=== PATIENT | female | born 1945 | race Caucasian/White ===

== ENCOUNTER 2025-09-03 08:36 | Day surgery (SDC) | payer OTHER, SELFPAY ==
--- NOTE | ~2025-09-03 | FL_ITS ---
EXAMINATION: FL GUIDANCE ONLY HISTORY: Procedural guidance COMPARISON: None available. TECHNIQUE: Fluoroscopy time: 11 seconds. Cumulative Dose: 1.70 mGy. DAP: 74.96 uGym2 Images: 1. FINDINGS: A single fluoroscopic spot film of the cervical spine demonstrates a needle and contrast material in place. FL/FL guidance in OR IMPRESSION: Fluoroscopy during procedure. Please see procedure report for additional information. Electronically signed by: Júnior Correa MD 09/03/2025 11:34 AM JANIS
[2025-09-03 09:33] VITALS: BMI 26.5
--- NOTE | 2025-09-03 09:34 | MHC.SHP ---
Pre-Procedural Eval Section A - 24 Hr Update-Section A only Date of Service: 09/03/25 The patient is an INPATIENT: No Changes since office visit: No Cold of Flu in the past 2 weeks, No New Medical Problems, No Changes in Medication and No Patient answered all questions Section B - Complete if H&P > 30 days Chief Complaint: Radiculopathy, cervical region Details of Present Illness: Chronic lower back pain, lumbar radiculitis Relevant Family History (Specify if Yes): No Relevant Social History: None Present Medications: see Short Stay Collaborative assessment Medical History: No relevant PMH History of Previous Operations: No relevant previous surgery Allergies: Allergies Allergy/AdvReac Type Severity Reaction Status Date / Time metformin Allergy Unknown Verified 08/30/25 16:22 Review of Systems Sugical H&P ROS: Negative: Constitution, Cardiovascular, Respiratory, Neurological, Psychiatric, Hem-Onc, Allergic/Immunologic, Gastrointestinal, Genitourinary, Musculoskeletal, Integumentary, Endocrine and Eyes/Ears/Nose/Throat Exam Surgical H&P Exam: Normal: HEENT, Normal: Heart, Normal: Lungs, Normal: Extremities, Normal: Abdomen, Normal: Skin and Normal: Neurological Plan Diagnosis/Plan: Unchanged I have reviewed the history and physical and performed a pertinent physical examination on my patient. No changes have occurred unless specified. Time Spent With Patient Time: Total time managing care of this patient today ____ minutes.
--- NOTE | 2025-09-03 09:35 | W.PM.OPN ---
Operative Note Operative Note Date of Service: 09/03/25 Narrative: Procedure performed: C7-T1 Preop diagnosis: Cervical radiculitis Postop diagnosis: The same Anesthesia: Local After informed consent was obtained patient was brought into the procedure room and placed in the prone position procedure table. Skin over cervicothoracic junction was prepped and draped in the usual sterile manner. C7-T1 interlaminar space was visualized utilizing fluoroscopy. After skin was anesthetized with lidocaine, 3.5 in 20 gauge Tuohy needle was introduced percutaneously and advanced superior edge of the T1 lamina. Needle was then slowly advanced into the epidural space utilizing loss of resistance technique. Once in place, needle placement was verified utilizing 3 cc of Omnipaque contrast solution. Good epidural spread was visualized. After negative aspiration for blood or cerebrospinal fluid, total volume of 5 cc containing 40 mg of triamcinolone and normal saline solution was injected. Radiation exposure was documented.
[2025-09-03 09:43] VITALS: BP 137/71; PULSE 78; RESP 16; TEMP 36.6; O2SAT 94
--- NOTE | 2025-09-03 09:44 | PC.NURSE ---
patient took Trulicity this morning, unaware need to hold medication for 7days. Dr. Mckenna anesthesiologist and Dr. Gibson aware. patient agreeable to procdure with local anesthesia.
[2025-09-03 10:26] VITALS: BP 144/67; PULSE 70; RESP 18; TEMP 36.6; O2SAT 98
== END 2025-09-03 10:45 | disposition home or self-care (01) ==
PROVIDERS: PCP Internal Medicine; Visit Provider Physical Medicine & Rehabilitation
PROC: (CPT 62321; principal; 2025-09-03 12:30)
DX: M54.12 Radiculopathy, cervical region (principal); G89.4 Chronic pain syndrome; M54.2 Cervicalgia; M48.02 Spinal stenosis, cervical region; M19.90 Unspecified osteoarthritis, unspecified site; J43.9 Emphysema, unspecified; I10 Essential (primary) hypertension; E11.9 Type 2 diabetes mellitus without complications; Z79.51 Long term (current) use of inhaled steroids; Z79.52 Long term (current) use of systemic steroids; Z79.84 Long term (current) use of oral hypoglycemic drugs; Z79.85 Long-term (current) use of injectable non-insulin antidiabetic drugs; Z79.899 Other long term (current) drug therapy; Z88.8 Allergy status to other drugs, medicaments and biological substances; Z98.890 Other specified postprocedural states
CPT/HCPCS: 62321; J2003; J3301; Q9967

== ENCOUNTER → 2025-09-03 08:36 | Outpatient (BNV) | payer OTHER, SELFPAY | PROVIDERS: PCP Internal Medicine; Visit Provider Physical Medicine & Rehabilitation | DX: M54.12 Radiculopathy, cervical region (principal) | CPT/HCPCS: 62321 ==

== ENCOUNTER 2025-09-27 09:11 | Outpatient (AMB) | payer OTHER, SELFPAY ==
--- OUTSIDE RECORDS SUMMARY | 2024-06-19 06:30 | XMS_ITS ---
Author Organization [facility] Address [address] [place] [address] Care Team Providers Care Supervisor Speech Name Role Phone Beto KELLEY, Aleena Primary Care Provider Unavailab Tom Hester Unavailable [phone] Encounters Encounter Location Date Provider Diagnosis [facility] [address] [place] [address] 06/19/2024 Tom Villa Plan Of Treatment Next Appt Details Provider Name:Vanessa lopez, 11/23/2025 09:30:00 AM, [address], [place], [address], Progress Notes * Nicky GOMESDOB: [birth year] (79 yo F)Acc No.[id number]:06/19/2024 Progress Note Patient: Nicky OLIVIER Provider: Jah Villa DPM :1945 A ge:78 Y S ex:Female Date:06/19/2024 Address:[address], [place], [place] Pcp:Aleena Pérez MD Subjective: * Chief Complaints: * * Medical History: Objective: * Vitals: Assessment: Plan: * Treatment: * Images: * The named appointment provid er may or may not be the originator of this progress note, and it is not deemed complete until electronically signed by the appointment provider. Sign off status: Pending * Provider: Jah Villa DPM Date: 0 06/19/2024 Generated for Alphonso parson/Hung/Melissaitting on: 1 11/28/2024 10:21 AM EST
[2025-09-27 09:21] VITALS: BMI 26.5
--- NOTE | 2025-09-27 09:21 | A.PHYSOV ---
Vital Signs 09/27/25 09:21 Height 5 ft 2 in Weight 145 lb BMI 26.5 Intake Visit Reasons: F/U after injection 09/03/2025 Intake Note: Patient is a 79 year old female in office for a follow up after C7-T1 interlaminar epidural injection 09/03/25. Patient also her for her 3 month medication management visit. Patient feels injection didn't work this time. Radiology Scheduler Required: No Allergies metformin Allergy (Verified 09/27/25 09:21) Unknown HPI Comments Details: History of Present Illness The patient is an 79 year old female presenting with chronic lower back pain, lumbar radiculitis, and cervical radiculitis. She is contracted for oxycodone three times a day and also uses it as needed for severe pain, and she has been rational with her medication use. She has a history of multiple lumbar epidural injections that provided no significant benefit. A C7-T1 epidural injection on April 16, 2025, provided excellent results with pain relief for almost three months. Her cervical spine MRI revealed moderate central canal stenosis at C4-C5 and moderate to severe canal stenosis at C5-C6 with varying degrees of neural foraminal stenosis. Due to returning pain, she underwent a repeat C7-T1 epidural injection on September 03, 2025, but this procedure did not provide any pain relief. The patient reports experiencing stiffness and pain upon waking in the morning, which improves as she starts to move. Pain Description - Location: Pain is located in the lower back and neck. - Quality: The pain is chronic. - Associated Symptoms: Reports morning stiffness and pain that improves with movement. - Other: During the recent unsuccessful injection, she experienced a sensation like electricity going in my kidney. Results - Imaging: A cervical spine MRI prior to August 02, 2025 showed moderate central canal stenosis at C4-C5 and moderate to severe canal stenosis at C5-C6 with various degrees of neural foraminal stenosis. [facility] Medical History (Updated 09/27/25 @ 12:33 by Raffi Gibson DO) parts counterman use of opioid Chronic pain syndrome Lumbar radiculitis HTN (hypertension) Emphysema, unspecified Diabetes Arthritis Asthma Cervical radiculitis Surgical History History of knee surgery History of back surgery History of epidural steroid injection into lumbar spine Social History Are you a primary child care centre manager to a significant other at home: No Do you presently have visiting nurse or other home services: No Alcohol intake: current Alcohol intake frequency: holidays/special occasions only Patient Tobacco Use Status: Never used Tobacco Second Hand Smoke Exposure: No Current occupational status: retired Review of Systems Narrative Review of Systems - Musculoskeletal: Reports chronic pain in the lower back and neck, along with morning stiffness. - Neurological: Reports symptoms consistent with lumbar and cervical radiculitis. Physical Exam Exam Exam: Physical Exam Patient appears to be in no acute distress, appropriately conversant oriented. She ambulates without antalgia. Lumbar range of motion was restricted in extension. Dural tension signs were negative. Cervical range of motion was restricted in all planes. Spurling maneuver was negative. Lhermitte's sign was negative. Neurological examination was nonfocal. She demonstrated no upper motor neuron signs. Vital Signs: BMI result Body Mass Index 26.5 Assessment & Plan Assessment & Plan (1) Cervical radiculitis: Code(s): M54.12 - Radiculopathy, cervical region Category: Medical (2) Lumbar radiculitis: Code(s): M54.16 - Radiculopathy, lumbar region Category: Medical (3) Chronic pain syndrome: Code(s): G89.4 - Chronic pain syndrome Category: Medical (4) parts counterman use of opioid: Code(s): Z79.891 - parts counterman (current) use of opiate analgesic Category: Medical Plan Pain Management - Analgesia: The patient is taking oxycodone 3 times a day and as needed for severe pain. - Analgesia: A C7-T1 epidural on April 16, 2025, provided pain relief for almost three months, but a repeat injection on September 03, 2025, offered no benefit. - Affect: The patient expresses some frustration about having to live with pain for the rest of her life. - Activities of Daily Living: Her pain and stiffness are worse in the morning but improve with movement. - Activities of Daily Living: She dances every Wednesday and intends to start exercising at the [facility]. - Aberrant Drug Related Behaviors: The patient has been rational with her medication use and will need a refill in a few days. Plan Patient was informed and verbally consented to the use of an ambient scribe for clinic note documentation during this visit. 1. Chronic Pain The patient's chronic pain is attributed to cervical and lumbar radiculitis and cervical spinal stenosis. The recent C7-T1 epidural injection on September 03, 2025, failed to provide relief, unlike a previous injection that was effective for nearly three months. Given the lack of benefit, no further injections will be performed at this time. Management will continue with her current pain medication regimen of oxycodone, and a refill will be sent to her pharmacy. The patient was encouraged to pursue exercise at the [facility] and use hot showers for morning stiffness. Discussion Notes I discussed with the patient that her most recent C7-T1 epidural injection on September 03, 2025, unfortunately, did not provide any pain relief. We acknowledged this was different from her prior injection, which had worked for almost three months. I informed her that because the procedure was not effective, we will not attempt it again, and at this time there are no other injection options to offer. I advised that we will continue her current pain medication regimen, and I agreed to send a refill for her oxycodone to the pharmacy. I encouraged her to stay active with activities like dancing and to start exercising at the [facility], as movement and hot showers can help with her morning stiffness. Patient Instructions - Continue to take your oxycodone for pain as prescribed. - A prescription refill for your pain medication will be sent to your pharmacy in a few days. - We will not be doing any more injections at this time since the last one did not help your pain. - Try to stay active. Consider exercising at the [facility], as movement can help with pain and stiffness. - Taking a hot shower in the morning may help relieve morning stiffness. Medications: Changed From oxycodone-acetaminophen 5-325 mg (Percocet) 1 tab PO Q8H 28 days PRN 84 tabs 0RF Pain G89.4 - Chronic pain syndrome, M54.12 - Radiculopathy, cervical region, M54.16 - Radiculopathy, lumbar region To oxycodone-acetaminophen 5-325 mg (Percocet) Partial fill upon request 1 tab PO Q8H PRN 84 tabs 0RF Pain 28 days G89.4 - Chronic pain syndrome, M54.12 - Radiculopathy, cervical region, M54.16 - Radiculopathy, lumbar region Coding Level of Care Code Est Pt Level 3 (15560) Add On Problem Visit Only Diagnoses Cervical radiculitis M54.12 Lumbar radiculitis M54.16 Chronic pain syndrome G89.4 intermediate use of opioid Z79.891
--- OUTSIDE RECORDS SUMMARY | 2025-09-27 10:21 | XMS_ITS | Patient Health Record ---
Author Organization [facility] Crista catina Chou Address [address] [place] [address] Care Team Providers Care Research Computing Specialist Name Role Phone Beto KELLEY, [facility] Primary Care Provider Unavailab Tom Hester Unavailable [phone] Vanessa Bey Unavailable [phone] Allergies Allergen (clinical drug ingredient) Drug/Non Drug Allergy documented on EMR Reaction Allergy Type Onset Date Status metformin Metformin upset stomach Drug Allergy Act reshma Results Component Value Reference Range Notes HEMOGLOBIN A1C (GLYCOHEMOGLO BIN) Reviewed date:03/22/2025 09:14:31 AM Interpretation: Performing Lab: Notes/Report: HEMOGLOBIN A1C % (HH) 8.3 HEMOGLOBIN A1C (GLYCOHEMOGLO BIN) Reviewed date:08/17/2025 10:26:57 AM Interpretation: Performing Lab: Notes/Report: HEMOGLOBIN A1C % (HH) 8.3 Reason For Referral No Information Medications Medication SIG (Take, Route, Frequency, Duration) Notes Start Date End Date Status Albuterol Sulfate Ac tive Vitamin D 10 MCG/ML as directed Orally Active Dulaglutide 0.75 MG/0.5ML as directed Subcutaneous Active Ammonium Lactate 12 % 1 application to a ffected area Externally to feet Twice a day; Duration: 30 days Active DULoxetine HCl 20 MG 1 capsule Orally Tw ice a day; Duration: 30 day(s) Active Extra Depth Orthopedic Shoes (1 Pair) with Customized Heat Molded Multidensity Innersoles (3 Pair) as directed Dx: NIDDM/Polyneuropathy (E11.42), Hammertoe Foot Deformity (M20.41,M20.42), Preulcerative Skin Lesion(s) (L85.1 Active Famotidine 20 MG 1 tablet at bedtime as needed Orally Once a day; Duration: 30 day(s) Active Fish Oil Active Flovent Diskus 100 MCG/BLIST 1 puff Inhalation Twice a day Active Gabapentin 100 MG 1 capsule Orally Onc e a day; Duration: 30 day(s) Active glipiZIDE 10 MG 1 tablet 30 minutes before breakfast Orally Once a day; Duration: 30 day(s) Active Glucose Management - as directed Orally Active Atorvastatin Calcium Active traZODone HCl 50 MG 1 tablet at bedtime as needed Orally Once a day; Duration: 30 day(s) Active Accu-chek active care kit 1 tab Oral; Du ration: 14 days Active Valsartan 320 MG 1 tablet Orally Once a day; Duration: 30 day(s) Active Immunizations Vaccine Route Administration Date Status Comme nts Influenza Unknown 05/14/2020 Administered Influenza Unknown 10/22/2024 Administered COVID-19 Pfizer BioNTech Vaccine Unknown 2020 Adm inistered #2 12/17/20 Social History Tobacco Use: Social History Observation Description Date Details (start date - stop date) Never Smoker NA - NA Tobacco use other than smoking: Question Answer Notes Are you an other tobacco user? No Tobacco Control (Standard) Question Answer Notes Tobacco use: Nonsmoker Additional Findings: Tobacco non-user Current no nsmoker AUDIT-C (Standard) Question Answer Notes Did you have a drink containing alcohol in the p ast year? No Points 0 Interpretation Negative Problems Problem Type SNOMED Code ICD Code Onset Dates Problem Status W/U Status Risk Notes Problem Acquired hammer toe of right foot (3730082881696348 ) Other hammer toe(s) (acquired), right foot (M20.41) Active confirmed Response to treatment, Improvemen t Problem Acquired hammer toe of left foot (0230101675435037 ) Other hammer toe(s) (acquired), left foot (M20.42) Active confirmed Response to treatment, Improvemen t Problem Polyneuropathy due to type 2 diabetes mellitus (239698784) Type 2 diabetes mellitus with diabetic polyneuropathy (E11.42) Active confirmed Vital Signs Heart Rate 76 /min 03/19/2025 Blood pressure diastolic 65 mm Hg 08/17/2025 Height 5 ft 2 in in 08/17/2025 Blood pressure systolic 128 mm Hg 08/17/2025 Weight 143 lbs 08/17/2025 BMI 26.15 kg/m2 08/17/2025 Procedures Procedure Date Ordered Date Performed Result Body Sit e 44987-BJBBDRA NAIL, 6 OR MORE 03/19/2025 N/A 73283-LAGL SKIN LESIONS, OVER 4 03/19/2025 N/A 25823-KZFVAEA NAIL, 6 OR MORE 08/17/2025 N/A 54060-PDIR SKIN LESIONS, OVER 4 08/17/2025 N/A Encounters Encounter Location Date Provider Diagnosis [facility] [address] 03/19/2025 Tom Jeffersonunier Type 2 diabetes mellitus with diabetic polyneuropathy E11.42 ; Tinea unguium B35.1 ; Other hammer toe(s) (acquired), right foot M20.41 and Other hammer toe(s) (acquired), left foot M20.[address] [address] 08/17/2025 Vanessa Bey Type 2 diabetes mellitus with diabetic polyneuropathy E11.42 and Tinea unguium B35.1 Assessments Encounter Date Diagnosis (ICD Code) Assessment Notes Treatment Notes Treatment Clinical Notes Section Notes 03/19/2025 Tinea unguium (ICD-10 - B35.1) 03/19/2025 Type 2 diabetes mellitus with diabetic polyneuropathy (ICD-10 - E11.42) 08/17/2025 Tinea unguium (ICD-10 - B35.1) 08/17/2025 Type 2 diabetes mellitus with diabetic polyneuropathy (ICD-10 - E11.42) 03/19/2025 Other hammer toe(s) (acquired), right foot (ICD-10 - M20.41) Patient Educated with: DIABETIC FOOT CARE INSTRUCTIONS. pdf (DIABETIC FOOT CARE INSTRUCTIONS. pdf) 03/19/2025 Other hammer toe(s) (acquired), left foot (ICD-10 - M20.42) Plan Of Treatment Pending Test Test Name Order Date 52079-OLYKLDN NAIL, 6 OR MORE 09/11/2020 42966-NPOUNWK NAIL, 6 OR MORE 12/19/2020 90237-KKPYUDM NAIL, 6 OR MORE 03/20/2021 46109-DMQWUDA NAIL, 6 OR MORE 06/19/2021 57483-YTZSKII NAIL, 6 OR MORE 09/15/2021 41516-DZQDLZA NAIL, 6 OR MORE 12/15/2021 99761-RIHTUMU NAIL, 6 OR MORE 03/16/2022 68918-AQKVDQL NAIL, 6 OR MORE 06/17/2022 39177-KJHKQNI NAIL, 6 OR MORE 09/23/2022 48691-GVSABXO NAIL, 6 OR MORE 12/30/2022 27954-TDQDPYV NAIL, 6 OR MORE 04/01/2023 14051-GAAPUJH NAIL, 6 OR MORE 08/25/2023 09795-IQLPBYP NAIL, 6 OR MORE 11/25/2023 74812-HUIAMGA NAIL, 6 OR MORE 03/13/2024 19756-DENWSAJ NAIL, 6 OR MORE 07/27/2024 23456-VTJQGHL NAIL, 6 OR MORE 03/19/2025 96886-BDJQMAH NAIL, 6 OR MORE 08/17/2025 85678-Gospcmpa Plate 08/25/2023 99698-Xoseovph Plate 04/01/2023 90615-Oabzpbxi Plate 12/30/2022 51146-Mkhpxepk Plate 09/23/2022 78665-Dzmcphsr Plate 09/15/2021 71629- Debride <25 sq cm 10/31/2020 99944-COXA SKIN LESIONS, OVER 4 09/15/20 21 82090-ELFF SKIN LESIONS, OVER 4 03/16/20 68674-DAQG SKIN LESIONS, OVER 4 12/16/19 89616-OBMW SKIN LESIONS, OVER 4 06/19/20 21 99483-CYER SKIN LESIONS, OVER 4 03/20/20 21 00395-AXFW SKIN LESIONS, OVER 4 12/20/19 21 44156-VWLM SKIN LESIONS, OVER 4 09/11/20 20 12593-SMKJ SKIN LESIONS, OVER 4 09/23/20 22 56676-XVUC SKIN LESIONS, OVER 4 06/17/20 22 92638-IDWW SKIN LESIONS, OVER 4 12/31/19 23 79303-EJUU SKIN LESIONS, OVER 4 04/01/20 23 71830-YDID SKIN LESIONS, OVER 4 08/25/20 23 74697-LIIF SKIN LESIONS, OVER 4 11/25/19 24 84938-IFWR SKIN LESIONS, OVER 4 07/27/20 24 53041-WBRK SKIN LESIONS, OVER 4 03/13/20 24 08865-PPPY SKIN LESIONS, OVER 4 08/17/20 25 27809-XMVC SKIN LESIONS, OVER 4 03/19/20 25 82444-Wbsj. Subungual Hematoma 4 11253-Znpr. Subungual Hematoma 1 Next Appt Details Provider Name:Vanessa lopez, 11/23/2025 09:30:00 AM, [address] [facility] [facility] [address], [place], [address], Insurance Providers Payer Name Payer Address Payer Phone Subscriber Number Group Number Insured Name Patient Relationship to Insured Coverage Start Date Coverage End Date [facility]ly [facility] [employer] Claims [address] [place] [id number] [place], [place] Self - patient is the insured Medical (General) History Medical History History ICD Code Arthritis asthma Back,Hip,and Knee pain Diabetic Diverticulitis Headaches/Migraines High blood pressure Chicken pox Surgical History Surgery Date(Month/Year) Hospitalization History Reason Date([facility], [facility] 2021
== END 2025-09-27 09:42 | disposition home or self-care (01) ==
LOC: HO.HPHYS 09:11
PROVIDERS: PCP Internal Medicine; Visit Provider Physical Medicine & Rehabilitation
DX: M54.12 Radiculopathy, cervical region (principal); M54.16 Radiculopathy, lumbar region; G89.4 Chronic pain syndrome; Z79.891 Long term (current) use of opiate analgesic
CPT/HCPCS: 99213; G2211

== ENCOUNTER → 2025-09-27 09:11 | Outpatient (BNVA) | payer OTHER, SELFPAY | PROVIDERS: PCP Internal Medicine; Visit Provider Physical Medicine & Rehabilitation | DX: M54.12 Radiculopathy, cervical region (principal); M54.16 Radiculopathy, lumbar region; M48.02 Spinal stenosis, cervical region; G89.4 Chronic pain syndrome; Z79.891 Long term (current) use of opiate analgesic | CPT/HCPCS: 99212 ==